=== PATIENT | female | born 1940 | race Caucasian/White ===

== ENCOUNTER 2018-10-14 15:41 | Outpatient (CLI) | payer BC ==
--- NOTE | 2018-10-14 19:28 | RAD ---
FOUR VIEWS LUMBAR SPINE 10/14/18 HISTORY: Lumbar radiculopathy. Patient fell in May of 2018 and has had low back pain and hip pain since that time. COMPARISON: 05/30/18. FINDINGS: There are five nonribbearing lumbar type vertebral bodies. There is left convexed scoliosis of the th oracolumbar spine. Multilevel degenerative changes are again seen with narrowing of the intervertebra l disc spaces at all levels and multilevel osteophytes present. Transitional vertebra at the lumbosac ral junction is present. There is slight grade I anterolisthesis of L5 on S1. No abnormal translation al motion is seen between flexion and extension. Multilevel facet degenerative changes are seen. Ther e is mild height loss along the superior end plate of the L4 vertebral body overall similar to prior exam and may be related to either remote compression type fracture versus prominent degenerative kim nges at this level. No obvious acute fracture is seen. IMPRESSION: 1. Multilevel degenerative changes of lumbar spine. 2. Stable grade I anterolisthesis of L5 on S1. 3. Either prominent degenerative change along the superior end plate of The L3 vertebral body ve rsus a more remote compression fracture of the superior end plate L3 vertebral body. POS: [facility]
--- NOTE | 2018-10-14 20:36 | MRI ---
NONCONTRAST MRI LUMBAR SPINE 10/14/18 HISTORY: Lumbar radiculopathy. Patient has history of fall in May 2018 and has had low back pain and hip pain since that time. COMPARISON: None available. FINDINGS: The visualized retroperitoneal structures have a grossly normal MRI appearance. Based on the visualized lower thoracic rib, there are five nonribbearing lumbar type vertebral bodies with transition vertebra at the lumbosacral junction, and the S1 vertebral body is partially lumbari zed. Please refer to numbering system on images. There is left convexed scoliosis of the lumbar spine. Height loss involves the superior end plate of the L3 vertebral body, and while findings of height loss were seen on views of the lumbar spine on , fluid sensitive sequences do demonstrate increased T2 weighted signal intensity within the gilma tebral bodies particularly on the right. However, this signal is present in both the L2 and L3 verteb ral bodies and thought to be more likely be related to Modic type I end plate degenerative changes. H owever edema associated with a recent further height loss of the right lateral aspect of the L3 verte bral body could not be entirely excluded. Remaining vertebral body heights are within normal limits. Multilevel degenerative changes are seen throughout the lumbar spine with Schmorl's nodes seen at mul tiple levels. Heterogeneous signal intensity is seen throughout the vertebral bodies. Conus medullaris is normal in appearance and terminates at the L 2-3 level. T11-12 and T12-L1 levels: There is loss of intervertebral disc height with disc osteophyte complexes narrowing the ventral subarachnoid spaces at these levels. There is severe left sided neural foramina l narrowing at the T11-12 level, primarily related to facet hypertrophic changes and the disc osteoph yte complex. There is moderate right sided neural foraminal narrowing at the T12-L1 level. L1-2 level: There is loss of intervertebral disc height. There is a broad based disc osteophyte compl ex present. Facet degenerative changes are noted predominantly on the right. The left neural foramen is present, but there is moderate to sever right sided neural foraminal narrowing. L2-3 level: There is broad based disc osteophyte complex with prominent facet hypertrophic changes an d ligamentous thickening. The findings result in moderate narrowing of the central spinal canal. Ther e is severe right sided neural foraminal narrowing with mild to moderate left sided neural foraminal narrowing. L3-4 level: There is a broad based disc osteophyte complex and facet hypertrophic changes. The findin gs result in mild narrowing of the central spinal canal. There is mild left sided neural foraminal na rrowing with mild to moderate right sided neural foraminal narrowing. L4-5 level: There is loss of intervertebral disc height. There is broad based disc osteophyte complex and severe facet hypertrophic changes and suggestion of calcifications of the ligament as well as li gamentous thickening. The findings result in severe narrowing of the central spinal canal. There is m ild to moderate bilateral neural foraminal narrowing. L5-S1 level: There is grade I anterolisthesis of L5 on S1. There is severe loss of intervertebral dis c heights. Facet hypertrophic changes are present at this level. Broad based disc osteophyte complex is noted. There is mild right sided neural foraminal narrowing, but there is severe left sided neural foraminal narrowing with deformity of the nerve root within the left neural foramen at this level. S mall subcentimeter subchondral cyst is present involving the facet joints on this level. 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 IMPRESSION: 1. Multilevel degenerative changes throughout the lumbar spine with varying degrees of neural fo raminal narrowing. Greatest degrees of neural foraminal narrowing are seen at the L2-3 and at the L5- S1 levels where there is severe right sided neural foraminal narrowing at L2-3 and severe left sided neural foraminal narrowing at L5-S1 levels. 2. Prominent Modic type I end plate degenerative changes at the L2-3 level. There is height loss along the superior end plate of the L3 vertebral body. However, this appears to have been present on a prior lumbar spine on 05/30/18, but edema along the end plate of the L3 vertebral body related to a recent further compression deformity could not entirely excluded, but the findings are felt to more likely be attributable to the prominent end plate degenerative changes. 3. Grade I anterolisthesis of L5 on S1. POS: [facility]
== END 2018-10-14 15:42 | disposition home or self-care (01) ==
LOC: SCSMRI 15:41
PROVIDERS: ATTEND Nurse Practitioner Family
DX: M47.26 Other spondylosis with radiculopathy, lumbar region (principal); M43.17 Spondylolisthesis, lumbosacral region; M48.061 Spinal stenosis, lumbar region without neurogenic claudication; M48.07 Spinal stenosis, lumbosacral region
CPT/HCPCS: 72110; 72148